=== PATIENT | male | born 1985 | race Caucasian/White ===

== ENCOUNTER 2018-12-16 19:04 | Emergency (ER) | payer SELFPAY ==
[~2018-12-16] VITALS: Ht 188 cm; Wt 82.0 kg
[~2018-12-16 19:04] MED LIST: BUSPAR10 M1 PO; CIPRO XR500 MG PO; CIPROFLOXACN500 MG PO; CLINDAMYCIN150 MG PO; IMIQUIMOD5 % EX; LORTAB 7.5 PO; NAPROSYN500 MG PO; NO; PODOFILOX0.5 % EX; PYRIDIUM200 MG PO
[2018-12-16 19:51] LABS: HEMATOCRIT 48.2 % (39.0-50.0); HEMOGLOBIN 16.1 g/dl (14.0-18.0); IMMATURE GRANULOCYTES 0.4 % (0.0-5.0); MEAN CELL VOLUME 89.6 fL CALC (80.0-100.0); MEAN CORPUSCULAR HGB 29.9 pG CALC (26.0-32.0); MEAN CORPUSCULAR HGB CONC 33.4 g/L CALC (32.0-36.0); NEUT# 20.94 thou/uL (1.82-7.42); RED BLOOD COUNT 5.38 mill/uL (4.70-6.10)
[2018-12-16 20:01] LABS: ALKALINE PHOSPHATASE 76 u/l (38-126); AMYLASE 80 u/l (30-110); ANION GAP 14 (6-22 (CALC)); BILIRUBIN, TOTAL 0.6 mg/dL (0.0-1.4); BUN 16 mg/dL (9-20); BUN/CREATININE RATIO 19 (12-20 (CALC)); CARBON DIOXIDE 21 mmol/l (22-30); CHLORIDE 107 mmol/l (95-108); CREATININE 0.8 mg/dL (0.7-1.3); GFR > 60 ML/MIN (>=60 (CALC)); GFR FOR AFR.AMER. > 60 ML/MIN (>=60 (CALC)); LIPASE 121 u/l (23-300); POTASSIUM 4.1 mmol/l (3.5-5.1); SGOT/AST 23 u/l (17-59); SODIUM 139 mmol/l (137-146); TOTAL PROTEIN 8.1 g/dL (6.3-8.2)
[2018-12-16 21:05] VITALS: BP 131/68
[2018-12-16 21:28] LABS: URINE BILIRUBIN - DIPSTICK NEGATIVE (NEGATIVE); URINE BLOOD DIPSTICK NEGATIVE (NEGATIVE); URINE COLOR YELLOW; URINE GLUCOSE - DIPSTICK NEGATIVE (NEGATIVE); URINE KETONE TRACE mg/dL (NEGATIVE); URINE LEUK ESTERASE NEGATIVE (NEGATIVE); URINE NITRITE - DIPSTICK NEGATIVE (Negative); URINE PH 8.5 (4.5-8.0); URINE PROTEIN - DIPSTICK TRACE mg/dL (NEG-TRACE); URINE UROBILINOGEN - DIPSTICK 0.2 E.U./dL (0.2)
== END 2018-12-16 21:29 | disposition left against medical advice (07) | DRG 392 ==
LOC: ED 19:04
PROVIDERS: Family Medicine
DX: R10.9 Unspecified abdominal pain (principal); R11.2 Nausea with vomiting, unspecified; R52 Pain, unspecified; R68.83 Chills (without fever); R06.02 Shortness of breath; F17.210 Nicotine dependence, cigarettes, uncomplicated; Z91.19 Patient's noncompliance with other medical treatment and regimen

== ENCOUNTER 2022-07-23 20:08 | Emergency (ER) | payer SELFPAY ==
[2022-07-23] VITALS (7 sets, daily range): BP systolic 107–140; BP diastolic 62–85
[~2022-07-23] VITALS: Ht 188 cm; Wt 83.2 kg
[2022-07-23 20:57] LABS: HEMATOCRIT 48.4 % (39.0-50.0); HEMOGLOBIN 16.3 g/dl (14.0-18.0); IMMATURE GRANULOCYTES 0.1 % (0.0-5.0); MEAN CELL VOLUME 91.8 fL CALC (80.0-100.0); MEAN CORPUSCULAR HGB 30.9 pG CALC (26.0-32.0); MEAN CORPUSCULAR HGB CONC 33.7 g/dL CAL (32.0-36.0); NEUT# 12.37 thou/uL (1.82-7.42); RED BLOOD COUNT 5.27 mill/uL (4.70-6.10); RED CELL DISTRI WIDTH 12.9 % (11.5-15.5)
[2022-07-23 21:02] LABS: URINE BILIRUBIN - DIPSTICK NEGATIVE (NEGATIVE); URINE BLOOD DIPSTICK NEGATIVE (NEGATIVE); URINE COLOR YELLOW; URINE GLUCOSE - DIPSTICK NEGATIVE (NEGATIVE); URINE KETONE 15 mg/dL (NEGATIVE); URINE LEUK ESTERASE NEGATIVE (NEGATIVE); URINE PH 8.5 (4.5-8.0); URINE PROTEIN - DIPSTICK 100 mg/dL (NEG-TRACE); URINE UROBILINOGEN - DIPSTICK 0.2 E.U./dL (0.2)
[2022-07-23 21:07] LABS: URINE NITRITE - DIPSTICK NEGATIVE (Negative)
[2022-07-23 21:09] LABS: ALBUMIN 4.9 g/dL (3.2-5.0); ALKALINE PHOSPHATASE 90 u/l (38-126); ANION GAP 16 (6-22 (CALC)); BILIRUBIN, TOTAL 0.6 mg/dL (0.0-1.4); BUN 10 mg/dL (9-20); BUN/CREATININE RATIO 14 (12-20 (CALC)); CARBON DIOXIDE 25 mmol/l (22-30); CHLORIDE 103 mmol/l (95-108); CREATININE 0.7 mg/dL (0.7-1.3); GFR FOR AFR.AMER. > 60 ML/MIN (>=60 (CALC)); GFR OTHER RACES > 60 ML/MIN (>=60 (CALC)); LIPASE 71 u/l (23-300); POTASSIUM 4.2 mmol/l (3.5-5.1); SGOT/AST 28 u/l (17-59); SODIUM 140 mmol/l (137-146)
[2022-07-23 21:13] LABS: URINE AMORPH SEDIMENT MANY hpf (NONE-FER); URINE RBC 0-2 RBC/hpf (0-5); URINE WBC 0-2 WBC/hpf (0-5)
[2022-07-23] MEDS ORDERED: TORADOL PO (22:34)
[2022-07-23] MEDS ORDERED: PROMETHAZINE HY25 M1 PO (22:34)
== END 2022-07-23 23:11 | disposition home or self-care (01) | DRG 392 ==
LOC: ED 20:08
PROVIDERS: Family Medicine
DX: K52.9 Noninfective gastroenteritis and colitis, unspecified (principal)
CPT/HCPCS: Q9967; S0164

== ENCOUNTER 2023-08-13 13:01 | Inpatient (IN) | payer SELFPAY ==
[~2023-08-13] VITALS: Ht 188 cm; Wt 80.7 kg
[2023-08-13] VITALS (11 sets, daily range): BP systolic 81–130; BP diastolic 51–87
[~2023-08-13 13:01] MED LIST changes: +PROMETHAZINE HY25 M1 PO; +TORADOL PO
[2023-08-13 13:50] LABS: BASO% 0.1 % (0-3); EOS% 0.1 % (0-8); HEMATOCRIT 48.4 % (39.0-50.0); HEMOGLOBIN 15.9 g/dl (14.0-18.0); IMMATURE GRANULOCYTES 0.2 % (0.0-5.0); LYMPH% 8.8 % (15-41); MEAN CORPUSCULAR HGB 30.2 pG CALC (26.0-32.0); MEAN CORPUSCULAR HGB CONC 32.9 g/dL CAL (32.0-36.0); MONO% 1.8 % (2-13); NEUT# 21.3 thou/uL (1.82-7.42); RED BLOOD COUNT 5.26 mill/uL (4.70-6.10)
[2023-08-13 13:58] LABS: ALBUMIN 4.6 g/dL (3.2-5.0); ALKALINE PHOSPHATASE 91 u/l (38-126); ANION GAP 14 (6-22 (CALC)); BILIRUBIN, TOTAL 0.4 mg/dL (0.2-1.3); BUN 16 mg/dL (9-20); BUN/CREATININE RATIO 17 (12-20 (CALC)); CARBON DIOXIDE 26 mmol/l (22-30); CHLORIDE 101 mmol/l (95-108); CREATININE 0.9 mg/dL (0.7-1.3); GFR FOR AFR.AMER. > 60 ML/MIN (>=60 (CALC)); GFR OTHER RACES > 60 ML/MIN (>=60 (CALC)); LIPASE 108 u/l (23-300); POTASSIUM 3.8 mmol/l (3.5-5.1); SGOT/AST 32 u/l (17-59); SODIUM 138 mmol/l (137-146); TOTAL PROTEIN 7.6 g/dL (6.3-8.2)
--- NOTE | 2023-08-13 14:00 | NUR ---
Patient taken to room 6 in ED.
--- NOTE | 2023-08-13 16:26 | NUR ---
PATIENT BELONGINGS LIST COMPLETED. PREPARED FOR SURGERY. LAST KNOWN INTAKE 11PM ON 08/12/23.
[2023-08-13 16:36] LABS: URINE BILIRUBIN - DIPSTICK Negative (NEGATIVE); URINE BLOOD DIPSTICK Negative (NEGATIVE); URINE GLUCOSE - DIPSTICK 100 mg/dL (NEGATIVE); URINE KETONE Negative (NEGATIVE); URINE LEUK ESTERASE Negative (NEGATIVE); URINE NITRITE - DIPSTICK Negative (Negative); URINE PH 8.5 (4.5-8.0); URINE PROTEIN - DIPSTICK 30 mg/dL (NEG-TRACE); URINE SPECIFIC GRAVITY 1.015; URINE UROBILINOGEN - DIPSTICK 0.2 E.U./dL (0.2)
[2023-08-13 16:37] LABS: URINE COLOR Yellow
[2023-08-13 16:42] LABS: URINE AMORPH SEDIMENT MANY hpf (NONE-FER); URINE RBC 0-2 RBC/hpf (0-5); URINE WBC 0-2 WBC/hpf (0-5)
--- NOTE | 2023-08-13 16:53 | NUR ---
ATTEMPTED TO INSERT NG TUBE, PT NOT ABLE TO TOLERATE PLACEMENT, TUBE REMOVED
--- NOTE | 2023-08-13 16:57 | NUR ---
RN LUPE FROM OR HERE FOR TRANSPORT TO OR FOR SURGERY, VSS
--- NOTE | 2023-08-13 19:00 | NUR ---
REPORT RECEIVED FROM OFF GOING NURSE. ASSESSMENT COMPLETED ( SEE INTERVENTIONS). NO ACUTE DISTRESS NOTED AT THIS TIME. PATIENT DENIES ANY PAIN OR DISCOMFORT. CHEST TUBE NOTED TO THE RIGHT SIDE OF CHEST, CONNECTED TO CONTINUOUS SUCTION. NO FLUIDS NOTED IN THE CANISTER AT THIS TIME. BREATHING NOTED EVEN AND NON LABORED. WILL CONTINUE TO MONITOR.
--- NOTE | 2023-08-13 19:50 | NUR ---
PATIENT ARRIVED FROM SURGERY VIA STRETCHER ACCOMPANIED BY 2 OR NURSES. PER OR NURSE PATIENT WAS GIVEN FIRST DOSE OF TORADAL. NO ACUTE DISTRESS NOTED. PATIENT COMPLAINS OF SOME PAIN TO ABD. ABD NOTED WITH MIDLINE INCISION APPROXIMATED WITH DERMABOND. MINOR BLEEDING NOTED AT SITE. ASSESSMENT COMPLETED (SEE INTERVENTIONS). BED LOCKED, IN LOW POSITION, CALL LIGHT WITHIN REACH.
--- NOTE | 2023-08-13 20:35 | NUR ---
PATIENT PULLED OFF ALL MONITORING DEVICES AND SCDS STATING HE CANNOT BRITT IN BED ANYMORE. HE ALSO STATED THAT HE CANNOT USE THE URINAL AND HE HAD TO GO IN THE BATHROOM. HE STATECD HE IS IN SO MUCH PAIN BECAUSE HE IS NOT USED TO JUST LAYING IN BD. HE WAS TOLD HE COULD AMBULATE NEEDED. HE WAS ALSO EDUCATED ON NON PHARMACOLOGICAL WAYS TO REDUCE PAIN.
--- NOTE | 2023-08-13 22:00 | NUR ---
PATIENT STATED HE NEEDED TO HAVE A SMOKE. MD CONTACTED FOR NICOTINE PATCH. ORDER RECEIVED, AND PATCH WAS APPLIED.
--- NOTE | 2023-08-14 01:00 | NUR ---
PATIENT NOTED STANDING UP BESIDE BED. HE STATED " I WANT TO GO HOME, AND GO TO BED. THIS BED IS HORRIBLE AND I CANT STAY HERE." HE WAS EDUCATED ON THE IMPORTANCE OF WAITING TO SEE THE MD IN THE MORNING. HE THEN ASKED "CAN HE JUST GIVE ME SOME PAIN MEDS AND SEND ME HOME." HE WAS INFORMED THAT IT WILL NOT BE AT THIS HOUR. HE THEN STATED " I AM GOING TO JUST SIGN MYSELF OUT THEN". PATIENT THEN SIGNED AMA PAPERWORK AND WAS ESCORTED BY SECURITY.
[2023-08-14 07:49] VITALS: BP 110/69
[2023-08-14] MEDS ORDERED: PERCOCET 5/325M1 TAB PO (09:51)
== END 2023-08-14 01:00 | disposition left against medical advice (07) | DRG 346 ==
LOC: ED 13:01 → ED-I 16:00 → ED 16:58 → ORM 16:59 → ICU 20:22
PROVIDERS: Family Medicine; Nurse Practitioner; ADMIT Surgery; ATTEND Surgery
PROC: 0DSA0ZZ Reposition Jejunum, Open Approach (ICD-10-PCS; principal; 2023-08-13)
DX: K56.1 Intussusception (principal); K21.9 Gastro-esophageal reflux disease without esophagitis; F17.200 Nicotine dependence, unspecified, uncomplicated; Z20.822 Contact with and (suspected) exposure to COVID-19
CPT/HCPCS: J0690; J1650; Q9967; S0164

== ENCOUNTER 2023-10-08 01:47 | Emergency (ER) | payer SELFPAY ==
[~2023-10-08] VITALS: Ht 188 cm; Wt 82.0 kg
[~2023-10-08 01:47] MED LIST changes: +PERCOCET 5/325M1 TAB PO
[2023-10-08] MEDS ORDERED: MOTRIN800 MG PO (02:19)
[2023-10-08] MEDS ORDERED: MEDDOSEPAK PO (02:19)
[2023-10-08] MEDS ORDERED: METHOCARBAMOL500 MG PO (02:20)
[2023-10-08 03:15] VITALS: BP 121/84
== END 2023-10-08 03:15 | disposition home or self-care (01) | DRG 552 ==
LOC: ED 01:47
DX: M54.2 Cervicalgia (principal)

== ENCOUNTER 2023-10-08 21:54 | Emergency (ER) | payer SELFPAY ==
[~2023-10-08] VITALS: Ht 188 cm; Wt 79.0 kg
[~2023-10-08 21:54] MED LIST changes: +MEDDOSEPAK PO; +METHOCARBAMOL500 MG PO; +MOTRIN800 MG PO
[2023-10-09 01:56] VITALS: BP 141/90
== END 2023-10-09 02:04 | disposition home or self-care (01) | DRG 552 ==
LOC: ED 21:54
DX: M47.22 Other spondylosis with radiculopathy, cervical region (principal); F17.210 Nicotine dependence, cigarettes, uncomplicated; T50.906A Underdosing of unspecified drugs, medicaments and biological substances, initial encounter; Z91.128 Patient's intentional underdosing of medication regimen for other reason

== ENCOUNTER 2023-10-22 20:12 | Emergency (ER) | payer SELFPAY ==
[~2023-10-22] VITALS: Ht 182.9 cm; Wt 78.0 kg
[2023-10-22 20:33] VITALS: BP 110/62
[2023-10-22 21:36] LABS: BASO% 0.1 % (0-3); HEMATOCRIT 48.3 % (39.0-50.0); HEMOGLOBIN 15.9 g/dl (14.0-18.0); IMMATURE GRANULOCYTES 0.2 % (0.0-5.0); LYMPH% 11.4 % (15-41); MEAN CELL VOLUME 91.5 fL CALC (80.0-100.0); MEAN CORPUSCULAR HGB 30.1 pG CALC (26.0-32.0); MEAN CORPUSCULAR HGB CONC 32.9 g/dL CAL (32.0-36.0); NEUT# 15.86 thou/uL (1.82-7.42); NEUT% 87.3 % (42-76); RED BLOOD COUNT 5.28 mill/uL (4.70-6.10)
[2023-10-22 21:59] LABS: URINE BILIRUBIN - DIPSTICK Negative (NEGATIVE); URINE BLOOD DIPSTICK Negative (NEGATIVE); URINE GLUCOSE - DIPSTICK Negative (NEGATIVE); URINE KETONE Negative (NEGATIVE); URINE LEUK ESTERASE Negative (NEGATIVE); URINE NITRITE - DIPSTICK Negative (Negative); URINE PH 8.5 (4.5-8.0); URINE PROTEIN - DIPSTICK 100 mg/dL (NEG-TRACE); URINE SPECIFIC GRAVITY 1.015; URINE UROBILINOGEN - DIPSTICK 0.2 E.U./dL (0.2)
[2023-10-22 22:03] LABS: ALBUMIN 4.8 g/dL (3.2-5.0); ALKALINE PHOSPHATASE 75 u/l (38-126); ANION GAP 12 (6-22 (CALC)); BUN 18 mg/dL (9-20); BUN/CREATININE RATIO 24 (12-20 (CALC)); CARBON DIOXIDE 26 mmol/l (22-30); CHLORIDE 106 mmol/l (95-108); CREATININE 0.7 mg/dL (0.7-1.3); GFR FOR AFR.AMER. > 60 ML/MIN (>=60 (CALC)); GFR OTHER RACES > 60 ML/MIN (>=60 (CALC)); LIPASE 95 u/l (23-300); POTASSIUM 3.8 mmol/l (3.5-5.1); SGOT/AST 28 u/l (17-59); SODIUM 140 mmol/l (137-146); TOTAL PROTEIN 7.8 g/dL (6.3-8.2)
[2023-10-22 22:15] VITALS: BP 117/58
[2023-10-22 22:17] LABS: BILIRUBIN, TOTAL 0.7 mg/dL (0.2-1.3)
[2023-10-22 22:18] LABS: URINE COLOR Yellow
[2023-10-22 22:20] LABS: URINE AMORPH SEDIMENT MANY hpf (NONE-FER); URINE RBC 0-2 RBC/hpf (0-5); URINE WBC 0-2 WBC/hpf (0-5)
[2023-10-27] MEDS ORDERED: OMEPRAZOLE20 MG PO (09:51)
== END 2023-10-22 22:30 | disposition left against medical advice (07) | DRG 392 ==
LOC: ED 20:12
PROVIDERS: Emergency Medicine
DX: R10.84 Generalized abdominal pain (principal); F17.200 Nicotine dependence, unspecified, uncomplicated; Z87.19 Personal history of other diseases of the digestive system

== ENCOUNTER 2024-03-28 01:46 | Emergency (ER) | payer SELFPAY ==
[~2024-03-28] VITALS: Ht 182.9 cm; Wt 75.0 kg
[~2024-03-28 01:46] MED LIST changes: +HYDROCO/APAP1 TA9 PO; +OMEPRAZOLE20 MG PO; +ZOFRAN4 MG/TAB PO
[2024-03-28] MEDS ORDERED: KETOROLAC TROMETHAMINE 30 MG/ML SDV IM ONE (02:10)
[2024-03-28] MEDS ORDERED: DEXAMETHASONE SOD. PHOSPHATE 10 MG/ML VIAL IM ONE (02:10)
[2024-03-28] MEDS ORDERED: Acetaminophen 300 MG/Codeine 30 MG/COMBO PO ONE (02:10)
[2024-03-28] MEDS ORDERED: NAPROXEN 250 MG/TAB PO ONE (02:15)
[2024-03-28] MEDS ORDERED: ORPHENADRINE CITRATE 30 MG/ML AMP IM ONE (02:15)
[2024-03-28] MEDS ORDERED: STERAPRED DS10 MG PO (02:18)
[2024-03-28] MEDS ORDERED: TYLENOL # 31 TA1 PO (02:18)
[2024-03-28 02:56] VITALS: BP 126/72
== END 2024-03-28 02:58 | disposition home or self-care (01) | DRG 552 ==
LOC: ED 01:46
DX: M47.22 Other spondylosis with radiculopathy, cervical region (principal); F17.200 Nicotine dependence, unspecified, uncomplicated

== ENCOUNTER 2024-03-29 00:41 | Observation (INO) | payer SELFPAY ==
[~2024-03-29] VITALS: Ht 182.9 cm; Wt 75.0 kg
[~2024-03-29 00:41] MED LIST changes: +STERAPRED DS10 MG PO; +TYLENOL # 31 TA1 PO
--- NOTE | 2024-03-29 00:45 | NUR ---
PT TO ER BED 1 FOR TRIAGE AT THIS TIME WITH AN EVEN AND STEADY GAIT IN NO APPARENT DISTRESS. AFTER ANSWERING A FEW QUESTIONS PT DOES START TO DRY HEAVE AND STATED THAT HIS KIDNEYS ARE HURTING. EDP AWARE. CALL LIGHT WITHIN REACH AND PT AWAITING EDP EXAM.
[2024-03-29] MEDS ORDERED: MORPHINE SULFATE 4 MG/ML VIAL IV STA (00:59)
[2024-03-29] MEDS ORDERED: SODIUM CHLORIDE 0.9% 1,000 ML IV STA (00:59)
[2024-03-29] MEDS ORDERED: Pantoprazole Sodium 40 MG VIAL (Protonix) IV STA (00:59)
[2024-03-29] MEDS ORDERED: DIATRIZOATE MEGLUMINE & SODIUM 30 ML/BTL BTL PO ONE (01:00)
[2024-03-29] MEDS ORDERED: HYDROmorphone HCL 2 MG/AMP IV ONE (01:00)
[2024-03-29] MEDS ORDERED: PROMETHAZINE HCL 25 MG/ML AMP IV ONE ×2 (01:00→05:35)
[2024-03-29 01:16] LABS: HEMATOCRIT 50.9 % (39.0-50.0); HEMOGLOBIN 16.8 g/dl (14.0-18.0); IMMATURE GRANULOCYTES 0.6 % (0.0-5.0); LYMPH% 12.4 % (15-41); MEAN CELL VOLUME 92.2 fL CALC (80.0-100.0); MEAN CORPUSCULAR HGB 30.4 pG CALC (26.0-32.0); MONO% 3.7 % (2-13); NEUT# 16.47 thou/uL (1.82-7.42); NEUT% 83.3 % (42-76); RED BLOOD COUNT 5.52 mill/uL (4.70-6.10)
[2024-03-29 01:40] LABS: POTASSIUM 4.5 mmol/l (3.5-5.1)
[2024-03-29 01:41] LABS: ALBUMIN 5.4 g/dL (3.2-5.0); TOTAL PROTEIN 9.1 g/dL (6.3-8.2)
--- NOTE | 2024-03-29 01:49 | NUR ---
PT SITTING IN RM AWAITING RESULTS AT THIS TIME. CALL LIGHT WITHIN REACH AND PT HAS NO NEEDS OR CONCERNS AT THIS TIME.
--- NOTE | 2024-03-29 02:51 | NUR ---
PT SITTING IN RM AWAITING RESULTS AT THIS TIME. CALL LIGHT WITHIN REACH AND PT HAS NO NEEDS OR CONCERNS AT THIS TIME.
--- NOTE | 2024-03-29 03:43 | NUR ---
PT DOWN TO CT AT THIS TIME VIA WHEELCHAIR IN CARE OF SUPERVISOR TRANSFERRING AND BOXING.
[2024-03-29 04:28] LABS: URINE BILIRUBIN - DIPSTICK Negative (NEGATIVE); URINE BLOOD DIPSTICK Negative (NEGATIVE); URINE GLUCOSE - DIPSTICK Negative (NEGATIVE); URINE KETONE Negative (NEGATIVE); URINE LEUK ESTERASE Negative (NEGATIVE); URINE NITRITE - DIPSTICK Negative (Negative); URINE PH 6.5 (4.5-8.0); URINE PROTEIN - DIPSTICK 30 mg/dL (NEG-TRACE); URINE UROBILINOGEN - DIPSTICK 0.2 E.U./dL (0.2)
[2024-03-29 04:31] LABS: URINE COLOR Yellow
--- NOTE | 2024-03-29 04:49 | NUR ---
PT SITTING IN RM AWAITING RESULTS AT THIS TIME. CALL LIGHT WITHIN REACH AND PT HAS NO NEEDS OR CONCERNS AT THIS TIME.
[2024-03-29] MEDS ORDERED: HYDROmorphone HCL 2 MG/AMP IV STA (05:34)
[2024-03-29] MEDS ORDERED: LACTATED RINGER'S 1,000 ML IV ONE (05:35)
[2024-03-29] MEDS ORDERED: HYDROmorphone HCL 2 MG/AMP IV PRN (05:40)
[2024-03-29] MEDS ORDERED: FAMOTIDINE 10MG/ML 2ML SDV IV PRN (05:40)
[2024-03-29] MEDS ORDERED: ONDANSETRON 4 MG/TAB ODT PO PRN (05:40)
[2024-03-29] MEDS ORDERED: LACTATED RINGER'S 1,000 ML IV PRN (05:40)
[2024-03-29] MEDS ORDERED: PROMETHAZINE HCL 25 MG/ML AMP IV PRN (05:40)
[2024-03-29] MEDS ORDERED: ONDANSETRON HCl 4 MG/2 ML SDV IV PRN (05:40)
--- NOTE | 2024-03-29 05:45 | NUR ---
PT RESTING IN RM AWAITING ADMISSION AND SURGERY AT THIS TIME. CALL LIGHT WITHIN REACH AND PT HAS NO NEEDS OR CONCERNS.
--- NOTE | 2024-03-29 06:23 | NUR ---
PT RESTING IN RM AWAITING ADMISSION AND SURGERY AT THIS TIME. CALL LIGHT WITHIN REACH AND PT HAS NO NEEDS OR CONCERNS.
--- NOTE | 2024-03-29 06:41 | NUR ---
DR GENTILE AT BEDSIDE WITH THE PT AT THIS TIME TO DISCUSS PROCEDURE.
--- NOTE | 2024-03-29 06:55 | NUR ---
REPORT GIVEN TO MARCOS TRAN ON MED SURG AND PT TO BE TRANSPORTED UP AFTER SHIFT CHANGE. CALL LIGHT WITHIN REACH AND PT RESTING IN RM. REPORT GIVEN TO DAYSHIFT ER NURSE.
--- NOTE | 2024-03-29 06:55 | NUR ---
REPORT RECEIVED FROM MARC COURTNEY
--- NOTE | 2024-03-29 08:20 | NUR ---
PT TRANSPORTED TO [facility]
--- NOTE | 2024-03-29 08:25 | NUR ---
PT ARRIVED TO MED/SURG ROOM 263 IN STABLE CONDITION VIA WC ACCOMPANIED BY STAFF MEMBER.PT AMBULATED TO STANDING SCALE AND BEDSIDE WITH A STEADY GAIT. WT AND VS OBTAINED BY MAXIMILIAN BARLOW;PT A&O X4, ORIENTED TO ROOM AND CALL LIGHT SYSTEM;PT REPORTS ABDOMINAL PAIN THAT STARTED 03/28/24 AT APPROX 1600;ASSESSMENT COMPLETED;PT NOTED TO BE AGITATED AND GUARDED THROUGHOUT ASSESSMENT;RESPIRATIONS EVEN AND UNLABORED ON RA,CLEAR LUNG SOUNDS;ABDOMEN SOFT ON PALPATION AND ACTIVE IN ALL 4 QUADRANTS, LAST BM 03/26/24;STRONG PEDAL PULSES;SKIN INTACT;#20G TO RAC INFUSING LR @ 250ML/HR,SITE APPEARS HEALTHY;PT REPORTS WANTING TO SPEAK WITH AGAIN PRIOR TO SCHEDULED SX- TO BE NOTIFIED;PT EDUCATED ON NPO DIET STATUS AND VERBALIZES UNDERSTANDING;ALLERGY BAND APPLIED TO RIGHT ARM;FALL PRECAUTIONS IN PLACE WITH BED IN THE LOWEST POSITION;ENCOURAGED TO CALL FOR ASSISTANCE IF NEEDED;CALL LIGHT IN REACH;FREQUENT ROUNDS MADE.
--- NOTE | 2024-03-29 08:35 | NUR ---
SPOKE WITH BARRY LUCERO IN OR AND NOTIFIED OF PT REQUEST TO SPEAK WITH .
[2024-03-29 08:36] VITALS: BP 114/73
--- NOTE | 2024-03-29 09:00 | NUR ---
PT REPORTS ABDOMINAL PAIN BUT DENIES PAIN MEDICATION. PT STATES "THAT STUFF DOESNT WORK". [employer] PUMP TENDER OFFERED TO SPEAK WITH PHYSICAN ABOUT MEDICATION CHANGE BUT PT DENIES.FREQUENT ROUNDS MADE.
--- NOTE | 2024-03-29 10:45 | NUR ---
CALL LIGHT GOING OFF. UPON ENTERING THE ROOM PT IS DRESSED, STATING "TAKE THIS OUT OF MY ARM I AM LEAVING". EDUCATED ON RISKS OF LEAVING AGAINST MEDICAL ADVICE INCLUDING AND PT VERBALIZES UNDERSTANDING.IV SITE REMOVED WITH CATHETER INTACT.PT DECLINED WC FOR TRANSPORT TO LOBBY.
--- NOTE | 2024-03-29 10:47 | NUR ---
PT AMBULATED WITH A STEADY GAIT TO LOBBY.ALL PERSONAL BELONGINGS LEFT WITH HIM.
--- NOTE | 2024-03-29 10:50 | NUR ---
NOTIFIED OF AMA.
== END 2024-03-29 10:45 | disposition left against medical advice (07) | DRG 390 ==
LOC: ED 00:41 → ED-I 05:25 → ED 05:40 → MS2 05:41
PROVIDERS: Family Medicine; ADMIT Surgery; ATTEND Surgery
DX: K56.1 Intussusception (principal); F17.200 Nicotine dependence, unspecified, uncomplicated
CPT/HCPCS: G0378; S0164

== ENCOUNTER 2024-03-31 20:59 | Emergency (ER) | payer SELFPAY ==
[~2024-03-31] VITALS: Ht 182.9 cm; Wt 74.0 kg
[2024-03-31] VITALS (10 sets, daily range): BP systolic 116–149; BP diastolic 69–95
[2024-03-31] MEDS ORDERED: ONDANSETRON HCl 4 MG/2 ML SDV IV STA (21:13)
[2024-03-31] MEDS ORDERED: PROMETHAZINE HCL 25 MG/ML AMP IV STA (21:13)
[2024-03-31] MEDS ORDERED: SODIUM CHLORIDE 0.9% 1,000 ML IV STA (21:13)
[2024-03-31] MEDS ORDERED: SODIUM CHLORIDE 0.9% 1,000 ML IV ONE ×2 (21:20)
[2024-03-31] MEDS ORDERED: HYDROmorphone HCL 2 MG/AMP IV ONE (21:20)
[2024-03-31 21:44] LABS: BASO% 0.3 % (0-3); EOS% 0.3 % (0-8); HEMATOCRIT 49.2 % (39.0-50.0); HEMOGLOBIN 16.4 g/dl (14.0-18.0); IMMATURE GRANULOCYTES 0.1 % (0.0-5.0); MEAN CELL VOLUME 92.1 fL CALC (80.0-100.0); MEAN CORPUSCULAR HGB 30.7 pG CALC (26.0-32.0); MEAN CORPUSCULAR HGB CONC 33.3 g/dL CAL (32.0-36.0); MONO% 3.4 % (2-13); NEUT# 12.78 thou/uL (1.82-7.42); NEUT% 79.9 % (42-76); RED BLOOD COUNT 5.34 mill/uL (4.70-6.10); RED CELL DISTRI WIDTH 12.9 % (11.5-15.5)
[2024-03-31 21:54] LABS: ALBUMIN 4.5 g/dL (3.2-5.0); ALKALINE PHOSPHATASE 79 u/l (38-126); ANION GAP 11 (6-22 (CALC)); BUN 16 mg/dL (9-20); BUN/CREATININE RATIO 20 (12-20 (CALC)); CARBON DIOXIDE 23 mmol/l (22-30); CHLORIDE 110 mmol/l (95-108); CREATININE 0.8 mg/dL (0.7-1.3); ESTIMATED GFR 115 ML/MIN (>=90 (CALC)); LIPASE 68 u/l (23-300); POTASSIUM 4.1 mmol/l (3.5-5.1); SGOT/AST 35 u/l (17-59); SODIUM 140 mmol/l (137-146)
[2024-03-31 21:55] LABS: BILIRUBIN, TOTAL 0.5 mg/dL (0.2-1.3)
[2024-04-01 00:01] VITALS: BP 104/80
[2024-04-01 00:15] VITALS: BP 113/71
[2024-04-01 00:31] VITALS: BP 91/61
[2024-04-01 00:50] VITALS: BP 91/61
== END 2024-04-01 01:00 | disposition left against medical advice (07) | DRG 392 ==
LOC: ED 20:59
PROVIDERS: Internal Medicine
DX: R10.32 Left lower quadrant pain (principal); D72.829 Elevated white blood cell count, unspecified; F17.200 Nicotine dependence, unspecified, uncomplicated; Z87.19 Personal history of other diseases of the digestive system; Z53.29 Procedure and treatment not carried out because of patient's decision for other reasons
CPT/HCPCS: Q9967

== ENCOUNTER 2024-04-09 00:32 | Emergency (ER) | payer SELFPAY ==
[~2024-04-09] VITALS: Ht 182.9 cm; Wt 86.0 kg
[2024-04-09] MEDS ORDERED: HYDROmorphone HCL 2 MG/AMP IV STA (00:48)
[2024-04-09] MEDS ORDERED: Pantoprazole Sodium 40 MG VIAL (Protonix) IV STA (00:48)
[2024-04-09] MEDS ORDERED: SODIUM CHLORIDE 0.9% 1,000 ML IV STA (00:48)
[2024-04-09] MEDS ORDERED: ACETAMINOPHEN 500 MG TAB PO ONE (00:50)
[2024-04-09] MEDS ORDERED: DIATRIZOATE MEGLUMINE & SODIUM 30 ML/BTL BTL PO ONE (00:50)
[2024-04-09] MEDS ORDERED: SODIUM CHLORIDE 0.9% 1,000 ML IV SCH (00:50)
[2024-04-09] MEDS ORDERED: PROMETHAZINE HCL 25 MG/ML AMP IV ONE (00:50)
[2024-04-09 01:11] LABS: BASO% 0.3 % (0-3); EOS% 0.5 % (0-8); HEMATOCRIT 48.4 % (39.0-50.0); HEMOGLOBIN 15.8 g/dl (14.0-18.0); LYMPH% 5.1 % (15-41); MEAN CELL VOLUME 92.2 fL CALC (80.0-100.0); MEAN CORPUSCULAR HGB 30.1 pG CALC (26.0-32.0); MEAN CORPUSCULAR HGB CONC 32.6 g/dL CAL (32.0-36.0); MONO% 11.6 % (2-13); NEUT# 8.9 thou/uL (1.82-7.42); NEUT% 81.5 % (42-76); RED BLOOD COUNT 5.25 mill/uL (4.70-6.10); RED CELL DISTRI WIDTH 13.2 % (11.5-15.5)
[2024-04-09 01:26] LABS: ALBUMIN 4.7 g/dL (3.2-5.0); BILIRUBIN, TOTAL 0.5 mg/dL (0.2-1.3); CREATININE 0.9 mg/dL (0.7-1.3); POTASSIUM 3.9 mmol/l (3.5-5.1); TOTAL PROTEIN 8.1 g/dL (6.3-8.2)
[2024-04-09 02:49] LABS: URINE BILIRUBIN - DIPSTICK Negative (NEGATIVE); URINE BLOOD DIPSTICK Negative (NEGATIVE); URINE GLUCOSE - DIPSTICK Negative (NEGATIVE); URINE KETONE Negative (NEGATIVE); URINE LEUK ESTERASE Negative (NEGATIVE); URINE NITRITE - DIPSTICK Negative (Negative); URINE PROTEIN - DIPSTICK Negative (NEG-TRACE); URINE SPECIFIC GRAVITY 1.015; URINE UROBILINOGEN - DIPSTICK 0.2 E.U./dL (0.2)
[2024-04-09 02:55] LABS: URINE COLOR Yellow
[2024-04-09] MEDS ORDERED: DICLOFENAC SODIUM 75 MG/TAB PO ONE (05:30)
[2024-04-09] MEDS ORDERED: DICYCLOMINE HCL 10 MG/CAP PO ONE (05:30)
[2024-04-09] MEDS ORDERED: HYDROcodone 5 MG/Acetaminophen 325 MG/COMBO PO ONE (05:30)
[2024-04-09] MEDS ORDERED: DICYCLOMINE HYD10 MG PO (05:32)
[2024-04-09 05:48] VITALS: BP 117/82
== END 2024-04-09 05:49 | disposition home or self-care (01) | DRG 392 ==
LOC: ED 00:32
PROVIDERS: Family Medicine
DX: R10.12 Left upper quadrant pain (principal); Z87.19 Personal history of other diseases of the digestive system
CPT/HCPCS: Q9967; S0164